=== PATIENT | male | born 1940 | race Caucasian/White ===

== ENCOUNTER 2018-02-19 11:35 | Emergency (ER) | payer OTHER, MEDICARE ==
[~2018-02-19] VITALS: Ht 175.3 cm; Wt 82.5 kg
[~2018-02-19 11:35] MED LIST: ASPI325 PO; ASPI81CH PO; ATOR40TA PO; CHOL10002 PO; CLOP75; CLOP75 PO; CYCL10 PO; DOCU100 PO; DOXA4 PO; DUTA.5 PO; EZET10 PO; FAMO20 PO; GABA600 PO; HYDCHL12.5 PO; HYDMOR2 PO; Hydrochloroth12.5 MG PO; IBUP600 PO; LOSARTAN POTAS100 MG PO; METO25ER PO; MULVITMIND PO; Nitroglycerin0.4 MG SL; OMEP20ER PO; ONDA4ODT MM; PANT40 PO; RANI150 PO; Tylenol325 MG PO
[2018-02-19 12:49] LABS: BASOPHILS ABSOLUTE AUTO 0.02 K/mm3 (0.00-0.23); BASOPHILS PERCENT AUTO 0 % (0-2); EOSINOPHILS PERCENT AUTO 1 % (0-6); Hematocrit 42.8 % (37.0-53.0); Hemoglobin 14.1 g/dL (13.5-17.5); IMMATURE GRAN ABSOLUTE AUTO 0.02 K/mm3 (0.00-0.10); IMMATURE GRAN PERCENT AUTO 0 % (0-1); LYMPHOCYTES ABSOLUTE AUTO 1.32 K/mm3 (0.84-5.20); LYMPHOCYTES PERCENT AUTO 15 % (21-46); MONOCYTES ABSOLUTE AUTO 0.64 K/mm3 (0.16-1.47); MONOCYTES PERCENT AUTO 7 % (4-13); Mean Corpuscular HGB 29.3 pg (26.0-34.0); Mean Corpuscular HGB Conc 32.9 g/dL (31.5-36.5); Mean Corpuscular Volume 89 fL (80-100); Mean Platelet Volume 10.5 fL (9.1-12.4); NEUTROPHILS ABSOLUTE AUTO 6.83 K/mm3 (1.96-9.15); NEUTROPHILS PERCENT AUTO 77 % (41-73); Platelet Count 177 K/mm3 (150-400); RDW Coefficient Variation 12.9 % (11.7-14.2); RDW Standard Deviation 42.2 fL (35.1-46.3); Red Blood Cell Count 4.81 M/mm3 (4.30-5.90); White Blood Cell Count 8.93 K/mm3 (4.00-11.30)
[2018-02-19 13:03] LABS: Alanine Aminotransfer (ALT/SGP 36 U/L (12-78); Albumin, Blood 3.6 g/dL (3.4-5.0); Albumin/Globulin Ratio 1.2 (0.8-1.8); Alk Phos 79 U/L (50-136); Anion Gap 6 mmol/L (6-16); Aspartate Aminotrans (AST/SGOT 21 U/L (12-37); Bilirubin, Total 0.5 mg/dL (0.1-1.0); Blood Urea Nitrogen 20 mg/dL (8-24); Bun/Creatinine Ratio 20.4 (12.0-20.0); CO2, Blood 27 mmol/L (21-32); Calcium, Blood 8.9 mg/dL (8.5-10.1); Chloride, Blood 106 mmol/L (98-108); Creatinine, Blood 0.98 mg/dL (0.60-1.20); Globulin, Blood 2.9 g/dL (2.2-4.0); Glomerular Filtration Rate >60 (60-); Glucose, Blood 108 mg/dL (70-99); Potassium, Blood 3.6 mmol/L (3.5-5.5); Sodium, Blood 139 mmol/L (136-145); Total Protein, Blood 6.5 g/dL (6.4-8.2)
== END 2018-02-19 13:27 | disposition home or self-care (01) ==
LOC: ER 11:35
PROVIDERS: Emergency Medicine
DX: H81.10 Benign paroxysmal vertigo, unspecified ear (principal); Z88.8 Allergy status to other drugs, medicaments and biological substances; Z88.1 Allergy status to other antibiotic agents; Z79.899 Other long term (current) drug therapy; Z79.82 Long term (current) use of aspirin; I10 Essential (primary) hypertension; Z87.891 Personal history of nicotine dependence
CPT/HCPCS: 36415; 80053; 85025; 93005; 93010; 99284-25

== ENCOUNTER 2019-08-07 19:25 | Emergency (ER) | payer MEDICARE, OTHER ==
[~2019-08-07] VITALS: Ht 175.3 cm; Wt 78.9 kg
[~2019-08-07 19:25] MED LIST changes: +CO Q10100 MG PO; +FISH OIL 1,2001 EACH PO; +GABAPENTIN600 MG PO
[2019-08-07 20:16] LABS: BASOPHILS ABSOLUTE AUTO 0.02 K/mm3 (0.00-0.23); BASOPHILS PERCENT AUTO 0 % (0-2); EOSINOPHILS ABSOLUTE AUTO 0.14 K/mm3 (0.00-0.68); EOSINOPHILS PERCENT AUTO 3 % (0-6); Hematocrit 44.2 % (37.0-53.0); Hemoglobin 14.3 g/dL (13.5-17.5); IMMATURE GRAN ABSOLUTE AUTO 0.01 K/mm3 (0.00-0.10); IMMATURE GRAN PERCENT AUTO 0 % (0-1); LYMPHOCYTES ABSOLUTE AUTO 1.65 K/mm3 (0.84-5.20); LYMPHOCYTES PERCENT AUTO 37 % (21-46); MONOCYTES ABSOLUTE AUTO 0.48 K/mm3 (0.16-1.47); MONOCYTES PERCENT AUTO 11 % (4-13); Mean Corpuscular HGB 28.4 pg (26.0-34.0); Mean Corpuscular HGB Conc 32.4 g/dL (31.5-36.5); Mean Corpuscular Volume 88 fL (80-100); Mean Platelet Volume 10.6 fL (9.1-12.4); NEUTROPHILS ABSOLUTE AUTO 2.17 K/mm3 (1.96-9.15); NEUTROPHILS PERCENT AUTO 49 % (41-73); Platelet Count 163 K/mm3 (150-400); RDW Coefficient Variation 13.5 % (11.7-14.2); RDW Standard Deviation 43.5 fL (35.1-46.3); Red Blood Cell Count 5.04 M/mm3 (4.30-5.90); White Blood Cell Count 4.47 K/mm3 (4.00-11.30)
[2019-08-07 20:36] LABS: Alanine Aminotransfer (ALT/SGP 24 U/L (12-78); Albumin, Blood 3.3 g/dL (3.4-5.0); Albumin/Globulin Ratio 1.1 (0.8-1.8); Alk Phos 90 U/L (50-136); Anion Gap 8 mmol/L (6-16); Aspartate Aminotrans (AST/SGOT 18 U/L (12-37); Bilirubin, Total 0.4 mg/dL (0.1-1.0); Blood Urea Nitrogen 25 mg/dL (8-24); Bun/Creatinine Ratio 27.9 (12.0-20.0); CO2, Blood 24 mmol/L (21-32); Calcium, Blood 8.1 mg/dL (8.5-10.1); Chloride, Blood 107 mmol/L (98-108); Globulin, Blood 3.1 g/dL (2.2-4.0); Glomerular Filtration Rate >60 (60-); Glucose, Blood 156 mg/dL (70-99); Potassium, Blood 3.3 mmol/L (3.5-5.5); Sodium, Blood 139 mmol/L (136-145); Total Protein, Blood 6.4 g/dL (6.4-8.2); Troponin I <0.015 ng/mL (0.000-0.040)
== END 2019-08-07 21:24 | disposition home or self-care (01) ==
LOC: ER 19:25
PROVIDERS: Emergency Medicine
DX: R00.2 Palpitations (principal); I10 Essential (primary) hypertension; I25.10 Atherosclerotic heart disease of native coronary artery without angina pectoris; E78.5 Hyperlipidemia, unspecified; K21.9 Gastro-esophageal reflux disease without esophagitis; Z87.891 Personal history of nicotine dependence; Z88.8 Allergy status to other drugs, medicaments and biological substances; Z79.899 Other long term (current) drug therapy; Z79.82 Long term (current) use of aspirin
CPT/HCPCS: 36415; 71046; 80053; 83880; 84484; 85025; 93005; 93010; 99285-25

== ENCOUNTER → 2021-02-18 | Outpatient (CLI) | payer MEDICARE, OTHER ==
[~2021-02-18] MED LIST changes: +AMLO10 PO; +CEPH500 PO; +Klor-Con 1010 MEQ PO; +METO50ER PO
== END | disposition home or self-care (01) ==
LOC: LAB SHORT 16:35
DX: L08.0 Pyoderma (principal)
CPT/HCPCS: 87070; 87205

== ENCOUNTER → 2021-03-23 | Outpatient (CLI) | payer MEDICARE, OTHER ==
[2021-03-23 10:27] LABS: BASOPHILS ABSOLUTE AUTO 0.02 K/mm3 (0.00-0.23); BASOPHILS PERCENT AUTO 0 % (0-2); EOSINOPHILS ABSOLUTE AUTO 0.01 K/mm3 (0.00-0.68); EOSINOPHILS PERCENT AUTO 0 % (0-6); Hematocrit 43.8 % (37.0-53.0); Hemoglobin 14.3 g/dL (13.5-17.5); IMMATURE GRAN ABSOLUTE AUTO 0.02 K/mm3 (0.00-0.10); IMMATURE GRAN PERCENT AUTO 0 % (0-1); LYMPHOCYTES ABSOLUTE AUTO 0.79 K/mm3 (0.84-5.20); LYMPHOCYTES PERCENT AUTO 11 % (21-46); MONOCYTES ABSOLUTE AUTO 0.69 K/mm3 (0.16-1.47); MONOCYTES PERCENT AUTO 10 % (4-13); Mean Corpuscular HGB 28.8 pg (26.0-34.0); Mean Corpuscular HGB Conc 32.6 g/dL (31.5-36.5); Mean Corpuscular Volume 88 fL (80-100); Mean Platelet Volume 10.8 fL (9.1-12.4); NEUTROPHILS ABSOLUTE AUTO 5.64 K/mm3 (1.96-9.15); NEUTROPHILS PERCENT AUTO 79 % (41-73); Platelet Count 154 K/mm3 (150-400); RDW Coefficient Variation 13.9 % (11.7-14.2); RDW Standard Deviation 44.9 fL (35.1-46.3); Red Blood Cell Count 4.97 M/mm3 (4.30-5.90); White Blood Cell Count 7.17 K/mm3 (4.00-11.30)
[2021-03-23 10:42] LABS: Alanine Aminotransfer (ALT/SGP 38 U/L (12-78); Albumin, Blood 3.6 g/dL (3.4-5.0); Albumin/Globulin Ratio 1.3 (0.8-1.8); Alk Phos 82 U/L (40-126); Anion Gap 13 mmol/L (6-16); Aspartate Aminotrans (AST/SGOT 27 U/L (12-37); Bilirubin, Total 0.9 mg/dL (0.1-1.0); Blood Urea Nitrogen 21 mg/dL (8-24); Bun/Creatinine Ratio 20.8 (12.0-20.0); CO2, Blood 24 mmol/L (21-32); Calcium, Blood 8.5 mg/dL (8.5-10.1); Chloride, Blood 102 mmol/L (98-108); Creatinine, Blood 1.01 mg/dL (0.60-1.20); Globulin, Blood 2.8 g/dL (2.2-4.0); Glomerular Filtration Rate >60 (60-); Glucose, Blood 119 mg/dL (70-99); Sodium, Blood 139 mmol/L (136-145); Total Protein, Blood 6.4 g/dL (6.4-8.2)
== END | disposition home or self-care (01) ==
LOC: LAB SHORT 10:24
PROVIDERS: General Practice
DX: R50.9 Fever, unspecified (principal)
CPT/HCPCS: 80053; 85025

== ENCOUNTER → 2021-10-14 | Outpatient (CLI) | payer MEDICARE, OTHER ==
[2021-10-14 12:27] LABS: BASOPHILS ABSOLUTE AUTO 0.02 K/mm3 (0.00-0.23); BASOPHILS PERCENT AUTO 0 % (0-2); EOSINOPHILS ABSOLUTE AUTO 0.36 K/mm3 (0.00-0.68); EOSINOPHILS PERCENT AUTO 7 % (0-6); Hemoglobin 15.4 g/dL (13.5-17.5); IMMATURE GRAN PERCENT AUTO 0 % (0-1); LYMPHOCYTES PERCENT AUTO 28 % (21-46); MONOCYTES ABSOLUTE AUTO 0.58 K/mm3 (0.16-1.47); MONOCYTES PERCENT AUTO 11 % (4-13); Mean Corpuscular HGB 29.1 pg (26.0-34.0); Mean Corpuscular HGB Conc 33.5 g/dL (31.5-36.5); Mean Corpuscular Volume 87 fL (80-100); Mean Platelet Volume 10.3 fL (9.1-12.4); NEUTROPHILS ABSOLUTE AUTO 2.87 K/mm3 (1.96-9.15); NEUTROPHILS PERCENT AUTO 54 % (41-73); Platelet Count 156 K/mm3 (150-400); RDW Standard Deviation 44.6 fL (35.1-46.3); White Blood Cell Count 5.33 K/mm3 (4.00-11.30)
[2021-10-14 12:37] LABS: Albumin, Blood 3.6 g/dL (3.4-5.0); Albumin/Globulin Ratio 1.2 (0.8-1.8); Bilirubin, Total 0.4 mg/dL (0.1-1.0); Bun/Creatinine Ratio 18.9 (12.0-20.0); Calcium, Blood 8.7 mg/dL (8.5-10.1); Creatinine, Blood 0.95 mg/dL (0.60-1.20); Potassium, Blood 3.8 mmol/L (3.5-5.5); Total Protein, Blood 6.6 g/dL (6.4-8.2)
== END | disposition home or self-care (01) ==
LOC: LAB SHORT 12:22 → LAB 12:22
PROVIDERS: Physician Assistant Medical
DX: I10 Essential (primary) hypertension (principal)
CPT/HCPCS: 80053; 85025

== ENCOUNTER 2022-07-07 14:48 | Emergency (ER) | payer MEDICARE, OTHER ==
[~2022-07-07] VITALS: Ht 175.3 cm; Wt 81.7 kg
[2022-07-07 15:32] LABS: BASOPHILS ABSOLUTE AUTO 0.01 K/mm3 (0.00-0.23); BASOPHILS PERCENT AUTO 0 % (0-2); EOSINOPHILS ABSOLUTE AUTO 0.23 K/mm3 (0.00-0.68); EOSINOPHILS PERCENT AUTO 4 % (0-6); Hematocrit 44.2 % (37.0-53.0); Hemoglobin 14.3 g/dL (13.5-17.5); IMMATURE GRAN ABSOLUTE AUTO 0.02 K/mm3 (0.00-0.10); IMMATURE GRAN PERCENT AUTO 0 % (0-1); LYMPHOCYTES PERCENT AUTO 32 % (21-46); MONOCYTES ABSOLUTE AUTO 0.68 K/mm3 (0.16-1.47); MONOCYTES PERCENT AUTO 12 % (4-13); Mean Corpuscular HGB 28.7 pg (26.0-34.0); Mean Corpuscular HGB Conc 32.4 g/dL (31.5-36.5); Mean Corpuscular Volume 89 fL (80-100); Mean Platelet Volume 10.9 fL (9.1-12.4); NEUTROPHILS ABSOLUTE AUTO 3.05 K/mm3 (1.96-9.15); NEUTROPHILS PERCENT AUTO 52 % (41-73); Platelet Count 168 K/mm3 (150-400); RDW Coefficient Variation 13.3 % (11.7-14.2); RDW Standard Deviation 43.1 fL (35.1-46.3); Red Blood Cell Count 4.99 M/mm3 (4.30-5.90); White Blood Cell Count 5.89 K/mm3 (4.00-11.30)
[2022-07-07 15:57] LABS: Albumin, Blood 3.5 g/dL (3.4-5.0); Albumin/Globulin Ratio 1.2 (0.8-1.8); Bilirubin, Total 0.3 mg/dL (0.1-1.0); Bun/Creatinine Ratio 19.4 (12.0-20.0); Calcium, Blood 8.6 mg/dL (8.5-10.1); Creatinine, Blood 1.24 mg/dL (0.60-1.20); Potassium, Blood 4.3 mmol/L (3.5-5.5); Total Protein, Blood 6.5 g/dL (6.4-8.2)
[2022-07-07] MEDS ORDERED: ROSUVASTATIN CAL5 MG PO (16:30)
[2022-07-07] MEDS ORDERED: EZETIMIBE10 M6 PO (16:30)
[2022-07-07] MEDS ORDERED: FLUT1DIS5 INH (17:44)
[2022-07-07 17:46] VITALS: BP 153/84
== END 2022-07-07 17:55 | disposition home or self-care (01) ==
LOC: ER 14:48
PROVIDERS: Student in an Organized Health Care Education/Training Program
DX: R07.2 Precordial pain (principal); J44.9 Chronic obstructive pulmonary disease, unspecified; Z88.8 Allergy status to other drugs, medicaments and biological substances; Z88.1 Allergy status to other antibiotic agents; Z79.899 Other long term (current) drug therapy; Z79.82 Long term (current) use of aspirin; I10 Essential (primary) hypertension; I25.2 Old myocardial infarction; E78.5 Hyperlipidemia, unspecified; K21.9 Gastro-esophageal reflux disease without esophagitis; M19.90 Unspecified osteoarthritis, unspecified site; Z87.891 Personal history of nicotine dependence
CPT/HCPCS: 71046; 80053; 83880; 84484; 85025; 93005; 93010; 99285-25

== ENCOUNTER 2024-06-08 10:59 | Day surgery (SDC) | payer MEDICARE, OTHER ==
[~2024-06-08] VITALS: Ht 175.3 cm; Wt 79.0 kg
[~2024-06-08 10:59] MED LIST changes: +Balanced Salt Epinephrine Irrigation Solution 500 mL IR SCH; +Diazepam 2 MG Tab PO PRN; +EZETIMIBE10 M6 PO; +FLUT1DIS5 INH; +Lidocaine HCl/Pf 1% 5 ML VIAL XX SCH; +Ondansetron 4 MG SoluTab MM PRN; +PHENYLEPHRINE\\TROPICAMIDE\\TETRACAINE OPHTHALMIC DILATING SOLN LEFTEYE PRN; +Povidone-Iodine 450 DROP/30 ML Solution LEFTEYE SCH; +Povidone-Iodine 450 DROP/30 ML Solution ONE; +ROSUVASTATIN CAL5 MG PO; +Tetracaine HCl/Pf 0.5% Opth Soln 4 ml ONE; +diazePAM 5 MG,diazePAM 2 MG PO SCH
[2024-06-08] MEDS ORDERED: Diazepam 2 MG Tab ONE (11:40)
[2024-06-08] MEDS ORDERED: Diazepam 5 MG Tab ONE (11:40)
--- NOTE | 2024-06-08 11:57 | NUR ---
06/08/24 1157 Zakia Travis TETRASELENA: 1145 SADIA: [id number]
[2024-06-08] MEDS ORDERED: Lidocaine HCl/Pf 1% 5 ML VIAL XX ONE (12:15)
[2024-06-08] MEDS ORDERED: BSS PLUS/EPINEPHRINE IRRIGATION SOLUTION 500 ML LEFTEYE ONE (12:15)
[2024-06-08] MEDS ORDERED: Moxifloxacin HCL 0.5 MG/0.1 ML 0.4MLSYR XX ONE (12:15)
--- NOTE | 2024-06-08 12:16 | NUR ---
06/08/24 1216 Tanya Clarke BP-165/84 P-61 SPO2-97% 10L BLOW BY O2
[2024-06-08 12:34] VITALS: BP 152/80
== END 2024-06-08 12:42 | disposition home or self-care (01) ==
LOC: ORSCSDS 10:59
PROVIDERS: Student in an Organized Health Care Education/Training Program
PROC: 08RK3JZ Replacement of Left Lens with Synthetic Substitute, Percutaneous Approach (ICD-10-PCS; principal; 2024-06-08 12:30)
DX: H25.812 Combined forms of age-related cataract, left eye (principal); J44.9 Chronic obstructive pulmonary disease, unspecified; E78.5 Hyperlipidemia, unspecified; I10 Essential (primary) hypertension; I25.10 Atherosclerotic heart disease of native coronary artery without angina pectoris; I25.2 Old myocardial infarction; K21.9 Gastro-esophageal reflux disease without esophagitis; Z95.0 Presence of cardiac pacemaker; H43.813 Vitreous degeneration, bilateral; Z79.82 Long term (current) use of aspirin; Z79.899 Other long term (current) drug therapy
CPT/HCPCS: A9270; J2003; V2632

== ENCOUNTER 2024-06-15 10:58 | Day surgery (SDC) | payer MEDICARE, OTHER ==
[~2024-06-15] VITALS: Ht 175.3 cm; Wt 81.0 kg
[~2024-06-15 10:58] MED LIST changes: -PHENYLEPHRINE\\TROPICAMIDE\\TETRACAINE OPHTHALMIC DILATING SOLN LEFTEYE PRN; +PHENYLEPHRINE\\TROPICAMIDE\\TETRACAINE OPHTHALMIC DILATING SOLN RIGHTEYE PRN; -Povidone-Iodine 450 DROP/30 ML Solution LEFTEYE SCH; +Povidone-Iodine 450 DROP/30 ML Solution RIGHTEYE SCH
[2024-06-15] MEDS ORDERED: Diazepam 5 MG Tab ONE (11:32)
[2024-06-15] MEDS ORDERED: Diazepam 2 MG Tab ONE (11:32)
--- NOTE | 2024-06-15 11:55 | NUR ---
06/15/24 Chante Carbajal PT RATED HIS ANXIETY A 02/25. 7MG OF VALIUM PO GIVEN AT 1139 PT APPEARS TO BE RESTING COMFORTABLY IN BED. WCTM.
[2024-06-15] MEDS ORDERED: Lidocaine HCl/Pf 1% 5 ML VIAL XX ONE (12:16)
[2024-06-15] MEDS ORDERED: BSS PLUS/EPINEPHRINE IRRIGATION SOLUTION 500 ML RIGHTEYE ONE (12:16)
[2024-06-15] MEDS ORDERED: Moxifloxacin HCL 0.5 MG/0.1 ML 0.4MLSYR XX ONE (12:16)
--- NOTE | 2024-06-15 12:18 | NUR ---
06/15/24 1218 Tanya Clarke BP-156/85 P-67 SPO2-98% 10L BLOW BY O2
[2024-06-15 12:32] VITALS: BP 142/84
== END 2024-06-15 12:44 | disposition home or self-care (01) ==
LOC: ORSCSDS 10:58
PROVIDERS: Student in an Organized Health Care Education/Training Program
PROC: 08RJ3JZ Replacement of Right Lens with Synthetic Substitute, Percutaneous Approach (ICD-10-PCS; principal; 2024-06-15 12:30)
DX: H25.811 Combined forms of age-related cataract, right eye (principal); Z96.1 Presence of intraocular lens; H43.813 Vitreous degeneration, bilateral; I10 Essential (primary) hypertension; J44.9 Chronic obstructive pulmonary disease, unspecified; I25.10 Atherosclerotic heart disease of native coronary artery without angina pectoris; E78.5 Hyperlipidemia, unspecified; K21.9 Gastro-esophageal reflux disease without esophagitis; Z95.0 Presence of cardiac pacemaker; Z87.891 Personal history of nicotine dependence; I25.2 Old myocardial infarction; Z79.82 Long term (current) use of aspirin; Z79.899 Other long term (current) drug therapy
CPT/HCPCS: A9270; J2003; V2632

== ENCOUNTER 2024-09-16 11:30 | Emergency (ER) | payer MEDICARE, OTHER ==
[~2024-09-16] VITALS: Ht 175.3 cm; Wt 81.7 kg
[~2024-09-16 11:30] MED LIST changes: -Balanced Salt Epinephrine Irrigation Solution 500 mL IR SCH; -Diazepam 2 MG Tab PO PRN; -Lidocaine HCl/Pf 1% 5 ML VIAL XX SCH; -Ondansetron 4 MG SoluTab MM PRN; -PHENYLEPHRINE\\TROPICAMIDE\\TETRACAINE OPHTHALMIC DILATING SOLN RIGHTEYE PRN; -Povidone-Iodine 450 DROP/30 ML Solution ONE; -Povidone-Iodine 450 DROP/30 ML Solution RIGHTEYE SCH; -Tetracaine HCl/Pf 0.5% Opth Soln 4 ml ONE; -diazePAM 5 MG,diazePAM 2 MG PO SCH
[2024-09-16] MEDS ORDERED: HYDR1TAB94 PO (12:30)
[2024-09-16] MEDS ORDERED: HYDROmorphone HCl/Pf 1MG SYR IV ONE (12:30)
[2024-09-16] MEDS ORDERED: Ondansetron 4 MG SoluTab SL ONE (14:30)
[2024-09-16 14:45] VITALS: BP 107/63
== END 2024-09-16 15:06 | disposition home or self-care (01) ==
LOC: ER 11:30
DX: S42.291A Other displaced fracture of upper end of right humerus, initial encounter for closed fracture (principal); I10 Essential (primary) hypertension; E78.5 Hyperlipidemia, unspecified; K21.9 Gastro-esophageal reflux disease without esophagitis; M19.90 Unspecified osteoarthritis, unspecified site; Z79.899 Other long term (current) drug therapy; Z88.1 Allergy status to other antibiotic agents; Z88.8 Allergy status to other drugs, medicaments and biological substances; Z79.2 Long term (current) use of antibiotics; W11.XXXA Fall on and from ladder, initial encounter; Z87.891 Personal history of nicotine dependence
CPT/HCPCS: 73030; 93005; 93010; 96374; 99284-25; A9270; J1171

== ENCOUNTER 2024-09-19 08:38 | Inpatient (IN) | payer OTHER, MEDICARE ==
[~2024-09-19] VITALS: Ht 175.3 cm; Wt 81.7 kg
[~2024-09-19 08:38] MED LIST changes: +HYDR1TAB94 PO
[2024-09-19] MEDS ORDERED: NS 500 ML IV SCH (09:25)
[2024-09-19] MEDS ORDERED: Ketorolac Tromethamine 30mg Vial IV ONE (09:25)
[2024-09-19] MEDS ORDERED: Diltiazem HCl 300 MG Cap.CD PO ONE (10:15)
[2024-09-19] MEDS ORDERED: FentaNYL Citrate 50 MCG/ML 2 ML Injection IV PRN (10:25)
[2024-09-19 12:10] VITALS: BP 161/85
[2024-09-19] MEDS ORDERED: CeFAZolin Sodium 2,000 MG in NS 100 ML IV SCH (13:35)
[2024-09-19] MEDS ORDERED: Tranexamic Acid 100 ML IV SCH (13:35)
--- NOTE | 2024-09-19 14:14 | NUR ---
PT TO IMAGING VIA STRETCHER.
--- NOTE | 2024-09-19 17:39 | NUR ---
shift summary. pt resting. received ct scan earlier. denies need for pain medication. r arm previously splinted several days ago with previous ed visit. pt will be npo after midnight for surgical repair of r proximal humerus.
[2024-09-19 20:07] VITALS: BP 143/70
[2024-09-19 20:55] VITALS: BP 151/80
[2024-09-20] VITALS (17 sets, daily range): BP systolic 104–159; BP diastolic 60–96
[2024-09-20] MEDS ORDERED: FentaNYL Citrate 50 MCG/ML 2 ML Injection IV PRN (03:55)
--- NOTE | 2024-09-20 04:19 | NUR ---
NOC SUMMARY- PT REMAINS IN SLING WITH SPLINT. PT HAS BEEN NPO SINCE SC. PT REPORTED NO RELIEF FROM ORDERED PAIN MEDS. DR OWENS CALLED AND ORDERED PO PAIN MED. PT REPORTED NO RELIEF. PROVIDER CONTACTED AND INCREASED DOSE OF IV PAIN MED. PT REPORTS SOME RELIEF. PT SITTING IN RECLINER DUE TO COMFORT. CALL LIGHT IN REACH.
[2024-09-20 05:08] LABS: BASOPHILS ABSOLUTE AUTO 0.01 K/mm3 (0.00-0.23); BASOPHILS PERCENT AUTO 0 % (0-2); EOSINOPHILS ABSOLUTE AUTO 0.27 K/mm3 (0.00-0.68); EOSINOPHILS PERCENT AUTO 3 % (0-6); Hematocrit 41.3 % (37.0-53.0); Hemoglobin 13.5 g/dL (13.5-17.5); IMMATURE GRAN ABSOLUTE AUTO 0.02 K/mm3 (0.00-0.10); IMMATURE GRAN PERCENT AUTO 0 % (0-1); LYMPHOCYTES ABSOLUTE AUTO 1.71 K/mm3 (0.84-5.20); LYMPHOCYTES PERCENT AUTO 20 % (21-46); MONOCYTES ABSOLUTE AUTO 0.86 K/mm3 (0.16-1.47); MONOCYTES PERCENT AUTO 10 % (4-13); Mean Corpuscular HGB Conc 32.7 g/dL (31.5-36.5); Mean Corpuscular Volume 89 fL (80-100); NEUTROPHILS ABSOLUTE AUTO 5.64 K/mm3 (1.96-9.15); NEUTROPHILS PERCENT AUTO 66 % (41-73); NRBC ABSOLUTE 0.00 K/mm3 (0.00-0.02); NRBC Auto 0.0 /100 WBC (0.0-0.2); Platelet Count 171 K/mm3 (150-400); RDW Coefficient Variation 13.4 % (11.7-14.2); RDW Standard Deviation 44.0 fL (35.1-46.3)
[2024-09-20 05:31] LABS: Anion Gap 10.0 mmol/L (3-11); Blood Urea Nitrogen 18.0 mg/dL (8-24); CO2, Blood 26.0 mmol/L (21-32); Calcium, Blood 8.5 mg/dL (8.5-10.1); Chloride, Blood 105.0 mmol/L (98-108); Creatinine, Blood 0.79 mg/dL (0.60-1.20); Glucose, Blood 94.0 mg/dL (70-99); Potassium, Blood 3.6 mmol/L (3.5-5.5); Sodium, Blood 137.0 mmol/L (136-145)
[2024-09-20] MEDS ORDERED: Cholecalciferol 1000 Unit Tablet (=25MCG) PO SCH (09:00)
[2024-09-20] MEDS ORDERED: Misc. Capsule PO SCH (09:00)
--- NOTE | 2024-09-20 10:15 | NUR ---
PT TO ROOM 212 FROM ED. R LEG INTERNALLY ROTATED. PAIN "BEARABLE" PER PT. ORIENTED TO ROOM. PT NPO FOR ORTHOPOEDIC EVALUATION BY DR ARGUELLO.
--- NOTE | 2024-09-20 14:20 | NUR ---
PT TO PREOP HOLDING ACCOMPANIED BY RN AND FAMILY
[2024-09-20] MEDS ORDERED: FentaNYL Citrate 50 MCG/ML 2 ML Injection ONE ×2 (14:24→18:18)
--- NOTE | 2024-09-20 14:37 | NUR ---
FLUSHED LAC IV SITE WITH 10NS, PATENT.
[2024-09-20] MEDS ORDERED: Midazolam HCl 1MG / ML 2ML Vial ONE (15:52)
[2024-09-20] MEDS ORDERED: Bupivacaine 0.5% HCl 5 MG/ML 30MLVIAL ONE (15:57)
[2024-09-20] MEDS ORDERED: Dexamethasone Sod Phos 10 MG/ML 1ML VIAL ONE ×2 (15:57→18:18)
--- NOTE | 2024-09-20 16:25 | NUR ---
REPORT FROM LEEANNA YANG RN. PT AXOX4, FAMILY AT BEDSIDE. INTERSCALINE BLOCK R SIDE COMPLETED AT BEDSIDE WITH DR. YOUNGER, TIME OUT COMPLETED PRE-BLOCK, OXYGEN PROVIDED VIA NASAL CANNULA, O2 MONINTORED THROUGHOUT, MD ADMINISTERED VERSED. PT TOLERATED PROCEDURE AND VERSED WELL. PT RESTING IN BED, VSS, WAITING FOR OPEN OR.
[2024-09-20] MEDS ORDERED: Bupivacaine 0.5% W/EPI 1:200000 SDV 30 ML Vial ONE (17:02)
[2024-09-20] MEDS ORDERED: Ondansetron HCl 2 MG / ML 2ML Vial ONE (18:18)
[2024-09-20] MEDS ORDERED: Rocuronium Bromide 10 MG/ML 5ML Injection IV ONE (18:18)
[2024-09-20] MEDS ORDERED: ePHEDrine Sulfate 50 MG/ML 1ML Injection ONE (18:47)
[2024-09-20] MEDS ORDERED: Phenylephrine HCl 10mg/ml 1 ml Vial ONE (18:55)
[2024-09-20] MEDS ORDERED: Sugammadex Sodium 200 MG/2ML SDV (100 MG/ML) ONE (20:32)
[2024-09-21 04:13] VITALS: BP 126/59
[2024-09-21 05:05] LABS: BASOPHILS ABSOLUTE AUTO 0.01 K/mm3 (0.00-0.23); BASOPHILS PERCENT AUTO 0 % (0-2); EOSINOPHILS ABSOLUTE AUTO 0.00 K/mm3 (0.00-0.68); EOSINOPHILS PERCENT AUTO 0 % (0-6); Hematocrit 36.2 % (37.0-53.0); Hemoglobin 12.1 g/dL (13.5-17.5); IMMATURE GRAN ABSOLUTE AUTO 0.03 K/mm3 (0.00-0.10); IMMATURE GRAN PERCENT AUTO 0 % (0-1); LYMPHOCYTES ABSOLUTE AUTO 0.60 K/mm3 (0.84-5.20); LYMPHOCYTES PERCENT AUTO 6 % (21-46); MONOCYTES ABSOLUTE AUTO 0.71 K/mm3 (0.16-1.47); MONOCYTES PERCENT AUTO 7 % (4-13); Mean Corpuscular HGB Conc 33.4 g/dL (31.5-36.5); Mean Corpuscular Volume 87 fL (80-100); NEUTROPHILS ABSOLUTE AUTO 9.07 K/mm3 (1.96-9.15); NEUTROPHILS PERCENT AUTO 87 % (41-73); NRBC ABSOLUTE 0.00 K/mm3 (0.00-0.02); NRBC Auto 0.0 /100 WBC (0.0-0.2); Platelet Count 180 K/mm3 (150-400); RDW Coefficient Variation 13.4 % (11.7-14.2); RDW Standard Deviation 43.2 fL (35.1-46.3)
[2024-09-21 05:56] LABS: Anion Gap 9.0 mmol/L (3-11); Blood Urea Nitrogen 20.0 mg/dL (8-24); CO2, Blood 24.0 mmol/L (21-32); Calcium, Blood 8.5 mg/dL (8.5-10.1); Chloride, Blood 105.0 mmol/L (98-108); Creatinine, Blood 0.76 mg/dL (0.60-1.20); Glucose, Blood 164.0 mg/dL (70-99); Potassium, Blood 3.9 mmol/L (3.5-5.5); Sodium, Blood 134.0 mmol/L (136-145)
--- NOTE | 2024-09-21 06:30 | NUR ---
SHIFT SUMMARY PT S/P R TOTAL SHOULDER, PT WAS VERY CONFUSED POST OP, HAD NO RECOLLECTION OF EVENTS LEADING UP TO PROCEDURE AND WAS CONFUSED TO SITUATION. PT FAMILY WAS IN ROOM WITH PT POST OP, WHICH HELPED TO SETTLE HIS ANXIETY AND REORIENT HIM. PT MENTATION CLEARED SHORTLY AFTER RETURNING TO HIS ROOM, AND HE IS COMPLETELY A/OX4 AT THIS TIME. PT RECEIVED BLOCK AND IS STILL NUMB. SURGICAL SITE WNL. EXT WARM. PT VOIDING AND TOLERATING PO INTAKE. VITALS STABLE. PLAN OF CARE UNCHANGED. BED IN LOWEST POSITION, CALL LIGHT WITHIN REACH.
[2024-09-21 07:35] VITALS: BP 106/65
[2024-09-21] MEDS ORDERED: Magnesium Hydroxide Conc 10 ML UDC PO PRN (09:30)
--- NOTE | 2024-09-21 12:56 | NUR ---
ASSUMED CARE A/O X 4 VERY PLEASENT PT CALLS APPRORIATLY. CURRENTLY RIGHT ARM BLOCK IS STILL IN EFFECT SO PT HAS NO PAIN. I TOLD PT THAT THAT WE SHOULD BE TALKING PAIN MEDICATION TO STAY ON TOP OF THAT BUT HE REFUSED BECAUSE HE HADENT HAD A BM YET AND FELT CONSTIPATED. NOTIFIED AND STOOL SOFTENER ORDERED. PT ASSISTED TO CHAIR, ICE TO RIGHT SHOULDER
[2024-09-21 14:31] VITALS: BP 125/64
[2024-09-21 20:32] VITALS: BP 121/56
[2024-09-22 04:42] LABS: BASOPHILS ABSOLUTE AUTO 0.01 K/mm3 (0.00-0.23); BASOPHILS PERCENT AUTO 0 % (0-2); EOSINOPHILS ABSOLUTE AUTO 0.01 K/mm3 (0.00-0.68); EOSINOPHILS PERCENT AUTO 0 % (0-6); Hematocrit 33.9 % (37.0-53.0); Hemoglobin 11.4 g/dL (13.5-17.5); IMMATURE GRAN ABSOLUTE AUTO 0.05 K/mm3 (0.00-0.10); IMMATURE GRAN PERCENT AUTO 0 % (0-1); LYMPHOCYTES ABSOLUTE AUTO 1.20 K/mm3 (0.84-5.20); LYMPHOCYTES PERCENT AUTO 9 % (21-46); MONOCYTES ABSOLUTE AUTO 1.34 K/mm3 (0.16-1.47); MONOCYTES PERCENT AUTO 10 % (4-13); Mean Corpuscular HGB Conc 33.6 g/dL (31.5-36.5); Mean Corpuscular Volume 88 fL (80-100); NEUTROPHILS ABSOLUTE AUTO 11.02 K/mm3 (1.96-9.15); NEUTROPHILS PERCENT AUTO 81 % (41-73); NRBC ABSOLUTE 0.00 K/mm3 (0.00-0.02); NRBC Auto 0.0 /100 WBC (0.0-0.2); Platelet Count 200 K/mm3 (150-400); RDW Coefficient Variation 13.7 % (11.7-14.2); RDW Standard Deviation 43.8 fL (35.1-46.3)
[2024-09-22 05:12] VITALS: BP 115/55
[2024-09-22 06:05] LABS: Anion Gap 8.0 mmol/L (3-11); Blood Urea Nitrogen 25.0 mg/dL (8-24); CO2, Blood 26.0 mmol/L (21-32); Calcium, Blood 8.1 mg/dL (8.5-10.1); Chloride, Blood 106.0 mmol/L (98-108); Creatinine, Blood 0.8 mg/dL (0.60-1.20); Glucose, Blood 118.0 mg/dL (70-99); Potassium, Blood 4.3 mmol/L (3.5-5.5); Sodium, Blood 136.0 mmol/L (136-145)
--- NOTE | 2024-09-22 06:17 | NUR ---
SHIFT SUMMARY PT POD 1 RIGHT TOTAL SHOULDER, PT HAS DONE WELL OVERNIGHT. PAIN MANAGED PER EMAR. SURGICAL SITE WNL, PT DENIES N/T IN EXT. VITALS ARE STABLE. PT AMBULATING WELL. ARM IN SLING AND PT AWARE OF WEIGHT BEARING RESTIRCTIONS. PLAN IS FOR DISCHARGE TODAY. BED IN LOWEST POSITION, CALL LIGHT WITHIN REACH.
[2024-09-22 07:16] VITALS: BP 109/67
[2024-09-22] MEDS ORDERED: OXAYDO5 M1 PO (12:06)
[2024-09-22] MEDS ORDERED: SENN187 PO (12:06)
--- NOTE | 2024-09-22 12:33 | NUR ---
DISCHARGE SUMMARY S/P R HUMORAL FX REPAIR, A/O X4, VSS, TOLERATING PO, PAIN WELL MANAGED PER EMAR, PT IS AMBULATORY AND ABLE TO DO ADL'S WITH MINIMAL ASSISTANCE, [place] TO R ARM HAS SOME DRAINAGE ON IT BUT NOT ENOUGH TO NEED A DRSSING CHANGE YET, 2 ADDITIONAL DRESSINGS WERE PROVIDED TO HIM AT DISCHARGE WITH INSTRUCTIONS ON HOW TO CHANGE THEM. DISCUSSED DISCHARGE INSTRUCTIONS WITH HIM INCLUDING HOME CARE, MEDICATIONS, AND HOME CARE INSTRUCTIONS. NO QUESTIONS AT THIS TIME, PT ESCORTED OUT VIA WC TO PRIVATE AUTO TO GO HOME.
== END 2024-09-22 12:35 | disposition home or self-care (01) | DRG 494 ==
LOC: ER 08:38 → SURS 08:39
PROVIDERS: Orthopaedic Surgery; ADMIT Family Medicine
PROC: 0PSF04Z Reposition Right Humeral Shaft with Internal Fixation Device, Open Approach (ICD-10-PCS; principal; 2024-09-20 17:00)
DX: S42.301A Unspecified fracture of shaft of humerus, right arm, initial encounter for closed fracture (principal); S42.211A Unspecified displaced fracture of surgical neck of right humerus, initial encounter for closed fracture; N40.0 Benign prostatic hyperplasia without lower urinary tract symptoms; I25.10 Atherosclerotic heart disease of native coronary artery without angina pectoris; I10 Essential (primary) hypertension; D64.9 Anemia, unspecified; E78.5 Hyperlipidemia, unspecified; I25.2 Old myocardial infarction; K21.9 Gastro-esophageal reflux disease without esophagitis; W11.XXXA Fall on and from ladder, initial encounter; M19.90 Unspecified osteoarthritis, unspecified site; Z90.89 Acquired absence of other organs; Z98.890 Other specified postprocedural states; Z95.5 Presence of coronary angioplasty implant and graft; Z87.891 Personal history of nicotine dependence; Z88.8 Allergy status to other drugs, medicaments and biological substances; Z79.899 Other long term (current) drug therapy; Z95.0 Presence of cardiac pacemaker; Z79.82 Long term (current) use of aspirin; Z88.1 Allergy status to other antibiotic agents; D72.829 Elevated white blood cell count, unspecified
CPT/HCPCS: 36415; 73030; 73060; 73200; 80048; 85025; 96374; 96375; 96376; 97116; 97162; 97165; 97530; 97535; 99284-25; A9270; C1713; G0378; J0690; J1100; J1885; J2250; J2371; J2405; J2704; J3010; J7030; J7120